=== PATIENT | male | born 1990 | race Caucasian/White ===

== ENCOUNTER 2020-09-01 14:04 | Emergency (ER) | payer OTHER ==
[2020-09-01 14:12] VITALS: BP 128/77; PULSE 62
--- NOTE | 2020-09-01 14:14 | EDM.PDOC ---
ED HPI GENERAL MEDICAL PROBLEM - General Chief Complaint: General Stated Complaint: SKIN COMPLAINT/LIGHTHEADED Time Seen by Provider: 09/01/20 14:27 Source of Information: Reports: Patient History Limitations: Reports: No Limitations - History of Present Illness INITIAL COMMENTS - FREE TEXT/NARRATIVE: 30-year-old male presents to the ED generally not feeling well. 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 He reports that he felt faint like he was going to pass out on 3 or 4 occasions today. Feels lightheaded and mildly dizzy. He has been having diarrhea stools on average 3 to 5/day for the last 3 days. No blood has been noticed. Appetite has been decreased. No nausea or vomiting. He denies any excessive alcohol use over the New Year's. Patient does appreciate some erythema off and on in his anterior thighs which is not really bothering him. Does not appreciate any fever chills cough or sputum production. No nasal congestion loss of sense of taste or smell. Currently he states that he is on antibiotic for a swelling in his right breast under the nipple. He has had this for approximately 2 to 3 months. Onset: Today Onset Date: 09/01/20 (Carrier repeatedly like he might faint today while at work standing on a work over rig working. I did sit down on 3 occasions that as he thought he was going to pass out. He has been having diarrhea stools for about 3 days on average 3-5 stools per day. Worse with eating.) Duration: Day(s):, Getting Worse, Intermittent Location: Reports: Generalized (Generalized sense of lightheadedness dizziness and like he might pass out.), Other (Patient has gynecomastia with a painful l ump gradually getting larger in his right breast over the last 2 to 3 months.) Quality: Reports: Other (Diarrhea stools x3 days loose watery and semiformed this morning with the first bowel movement. On average 3-5 bowel months per day. No associated fever chills or hematochezia.) Improves with: Reports: None Worsens with: Reports: None Context: Denies: Activity, Exercise, Lifting, Sick Contact, Trauma, Other Associated Symptoms: Reports: Loss of Appetite, Malaise, Syncope, Weakness, Other (Mild dizziness). Denies: No Other Symptoms, Confusion, Chest Pain, Cough, cough w sputum, Diaphoresis, Fever/Chills, Headaches, Nausea/Vomiting, Rash, Seizure, Shortness of Breath Treatments VENUE COORDINATOR: Reports: Other (see below) (None.) - Related Data Allergies Allergy/AdvReac Type Severity Reaction Status Date / Time No Known Allergies Allergy Verified 09/01/20 14:12 Home Meds: Home Meds Acetaminophen/HYDROcodone [[place] 325-5 MG] 1 - 2 tab PO Q6H PRN #40 tablet 04/30/16 [Rx] Cyclobenzaprine [Flexeril] 10 mg PO TID PRN #40 tablet 04/30/16 [Rx] Past Medical History Gastrointestinal History: Reports: Other (See Below) (Diarrhea stools with loose yellow stools x3 days 3 to 5/day.) Endocrine/Metabolic History: Reports: Other (See Below) (Patient has a painful mobile lump right breast. This is combined with gynecomastia. He states has been present for between 2 and 3 months. Seems to be gradually getting larger.) Social & Family History - Caffeine Use Caffeine Use: Reports: Energy Drinks Other Caffeine Use: drinks 2 daily - Recreational Drug Use Recreational Drug Use: No - Living Situation & Occupation Living situation: Reports: Single Occupation: Employed ED ROS GENERAL - Review of Systems Review Of Systems: See Below Constitutional: Reports: Malaise, Fatigue, Other (Recurrent of near syncope today. This was always well standing.). Denies: Fever, Chills HEENT: Reports: No Symptoms Respiratory: Reports: No Symptoms, Other (On examination of the right breast he does have a painful mobile mass approximately 2.5 cm x 1.2 cm under the right nipple. This is combined with gynecomastia. Concern reported by the patient is that it continues to slowly grow over the last 2 to 3 months.) Cardiovascular: Reports: No Symptoms Endocrine: Reports: Fatigue, Other (Painful lump right breast. Is been present for the last 2 to 3 months appears to be gradually getting larger.) GI/Abdominal: Reports: No Symptoms, Diarrhea (3-5 loose). Denies: Abdominal Pain, Anorexia, Black Stool, Bloody Stool, Constipation, Decreased Appetite, Difficulty Swallowing, Distension ( yellow stools per day for the last 3 days.), Flatus, Hematemesis, Hematochezia, Melena, Stool Incontinence, Vomiting, Other : Reports: No Symptoms Musculoskeletal: Reports: No Symptoms Skin: Reports: No Symptoms Neurological: Reports: Dizziness, Syncope, Weakness. Denies: Confusion, Headache, Numbness, Tingling (Only like he was going to faint on 2 or 3 occasions today.), Tremors, Trouble Speaking, Difficulty Walking, Change in Speech Psychiatric: Reports: No Symptoms Hematologic/Lymphatic: Reports: No Symptoms Immunologic: Reports: No Symptoms ED EXAM, GENERAL - Physical Exam Exam: See Below Exam Limited By: No Limitations General Appearance: Alert, WD/WN, No Apparent Distress, Other (Temperature is 36.2 with a heart rate of 62 and sinus respiratory of 16 O2 sats of 99% room air BP 09/26/1976. Orthostatic BPs were unremarkable.) Eye Exam: Bilateral Eye: Normal Inspection (No scleral icterus or blepharal pallor.), PERRL Ears: Normal TMs Throat/Mouth: Other Head: Atraumatic, Normocephalic (Tongue is slightly dry. Not coated) Neck: Normal Inspection, Supple, Non-Tender, Full Range of Motion. No: Carotid Bruit, Lymphadenopathy (L), Lymphadenopathy (R), Thyromegaly Respiratory/Chest: No Respiratory Distress, Lungs Clear, Normal Breath Sounds, No Accessory Muscle Use, Other (Examination of the right breast reveals a 2.5 cm x 1.2 cm mobile tender mass under the right nipple compatible with gynecomastia. The left side shows no such) Cardiovascular: Normal Peripheral Pulses, Regular Rate, Rhythm, No Edema, No Gallop, No Murmur, No Rub Peripheral Pulses: 3+: Carotid (L), Carotid (R), Posterior Tibial (L), Posterior Tibial (R), Dorsalis Pedis (L), Dorsalis Pedis (R) GI/Abdominal: Normal Bowel Sounds, Soft, Non-Tender, No Organomegaly, No Mass, Pelvis Stable Back Exam: Normal Inspection, Full Range of Motion. No: CVA Tenderness (L), CVA Tenderness (R) Extremities: Normal Inspection, Normal Range of Motion, Non-Tender, No Pedal Edema Neurological: Alert, Oriented, CN II-XII Intact, Normal Cognition Psychiatric: Normal Affect, Normal Mood Skin Exam: Warm, Dry, Intact, Normal Color, No Rash Course - Vital Signs Last Recorded V/S: Last Vital Signs Temp 36.2 C 09/01/20 14:09 Pulse 62 09/01/20 14:09 Resp 16 09/01/20 14:09 BP 128/77 09/01/20 14:09 Pulse Ox 99 09/01/20 14:09 Orthostatic Blood Pressure [ 111/76 Standing] Orthostatic Blood Pressure [ 122/74 Sitting] Orthostatic Blood Pressure [ 117/67 Supine] - Orders/Labs/Meds Orders: Active Orders 24 hr Category Date Time Status Orthostatic Vital Signs [RC] ASDIRECTED Care 09/01/20 14:13 Active PROLACTIN [REF] Stat Lab 09/01/20 14:40 Received TESTOSTERONE,FREE AND TOTAL [REF] Stat Lab 09/01/20 14:40 Received Dextrose 5%-Lactated Ringers 1,000 ml Med 09/01/20 14:30 Active IV ASDIRECTED Medication Orders Dextrose/Lactated Ringer's (Dextrose 5%-Lactated Ringers) 1,000 mls @ 999 mls/hr IV ASDIRECTED DIDI Last Admin: 09/01/20 14:44 Dose: 999 mls/hr Documented by: MEG Labs: Laboratory Tests 09/01/20 09/01/20 Range/Units 14:40 14:40 WBC 4.81 (4.23-9.07) K/mm3 RBC 4.38 L (4.63-6.08) M/mm3 Hgb 13.2 L (13.7-17.5) gm/dl Hct 38.4 L (40.1-51.0) % MCV 87.7 (79.0-92.2) fl MCH 30.1 (25.7-32.2) pg MCHC 34.4 (32.2-35.5) g/dl RDW Std Deviation 38.8 (35.1-43.9) fL Plt Count 273 (163-337) K/mm3 MPV 10.4 (9.4-12.3) fl Neut % (Auto) 44.3 (34.0-67.9) % Lymph % (Auto) 39.3 (21.8-53.1) % Meigs % (Auto) 11.2 (5.3-12.2) % Eos % (Auto) 4.4 (0.8-7.0) Baso % (Auto) 0.8 (0.1-1.2) % Neut # (Auto) 2.13 (1.78-5.38) K/mm3 Lymph # (Auto) 1.89 (1.32-3.57) K/mm3 Meigs # (Auto) 0.54 (0.30-0.82) K/mm3 Eos # (Auto) 0.21 (0.04-0.54) K/mm3 Baso # (Auto) 0.04 (0.01-0.08) K/mm3 Sodium 142 (136-145) mEq/L Potassium 3.8 (3.5-5.1) mEq/L Chloride 106 (98-107) mEq/L Carbon Dioxide 30 (21-32) mEq/L Anion Gap 9.8 (5-15) BUN 15 (7-18) mg/dL Creatinine 1.0 (0.7-1.3) mg/dL Est Cr Clr Drug Dosing 117.13 mL/min Estimated GFR (MDRD) > 60 (>60) mL/min BUN/Creatinine Ratio 15.0 (14-18) Glucose 91 (74-106) mg/dL Calcium 8.8 (8.5-10.1) mg/dL Magnesium 2.1 (1.8-2.4) mg/dl Total Bilirubin 0.6 (0.2-1.0) mg/dL AST 14 L (15-37) U/L ALT 24 (16-63) U/L Alkaline Phosphatase 101 (46-116) U/L C-Reactive Protein <0.2 (<1.0) mg/dL Total Protein 7.1 (6.4-8.2) g/dl Albumin 4.0 (3.4-5.0) g/dl Globulin 3.1 gm/dL Albumin/Globulin Ratio 1.3 (1-2) TSH 3rd Generation 0.521 (0.358-3.74) uIU/mL Meds: Medications Generic Name Dose Route Start Last Admin Trade Name Freq PRN Reason Stop Dose Admin Dextrose/Lactated Ringer's 1,000 mls @ 999 mls/hr 09/01/20 14:30 09/01/20 14:44 Dextrose 5%-Lactated Ringers IV 999 mls/hr ASDIRECTED DIDI Administration - Radiology Interpretation Free Text/Narrative:: 30-year-old male presents to the ED for evaluation of near syncopal Angie francisco today while at work. 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 States he felt faint on 3 occasions today and had to sit down for a period of time. He states he did have some food this morning. He has been having diarrhea for the last 3 days on average 3-5 loose watery stools per day. He states the first 1 this morning was semiformed but subsequently has been diarrhea. Denies nausea or vomiting. No fever chills no cough sputum production. The only other finding on exam was painful lump in the right breast which she reports has been present for the last 2 to 3 months i.e. gynecomastia. There is nothing in the left breast. He reports this mass has been slowly getting bigger over the last 3 months. He has not had a hormonal work-up. He denies taking any steroids. Orthostatic blood pressures are normal. He reports an intermittent red rash on his thighs for the last couple of days but it is gone at this point time. Is not itchy or sore. Plan IV will be D5 Ringer's lactate at open. Routine labs be done. I did also order a follicle-stimulating hormone, luteinizing hormone, serum prolactin level and testosterone both free and protein band. - Re-Assessments/Exams Free Text/Narrative Re-Assessment/Exam: 09/01/20 15:37 White count is normal at 4.81. The differential reveals 44% neutrophils and 39% lymphocytes. Hemoglobin is 13.2 with hematocrit of 38.4. Sodium 142 with a potassium of 3.8 . Chloride is 106 with a Bicarb of 30. Anion gap is 9.8 BUN is 15 with a creatinine of 1.0 and a GFR greater than 60. Glucose is 91 with a calcium of 8.8 magnesium is normal at 2.1. Liver function is normal. C-reactive protein less than 0.2. Total protein 7.1 with an albumin fraction of 4.0. TSH is 0.521 09/01/20 15:44 Patient advised of the normal lab test that I did. The hormone studies i.e. FSH, LH, prolactin and TSH will not be available. They will be sent to his primary care provider Veronique Addison. The fact that this gynecomastia area hurts is good news in terms that cancer does not hurt. Concern is that it is continued to grow due to uncontrolled hormone stimulation for a benign tumor. May require surgical referral if it continues to grow. The results of the above hormone studies will likely be available on Wednesday this next week as they are send outs. He will be going home from the ED to sleep. He is fit to return to return to work tomorrow. Departure - Departure Time of Disposition: 15:46 Disposition: Home, Self-Care 01 Condition: Fair Clinical Impression: Viral enteritis, Postural dizziness with near syncope, Gynecomastia, male - Discharge Information *PRESCRIPTION DRUG MONITORING PROGRAM REVIEWED*: Not Applicable *COPY OF PRESCRIPTION DRUG MONITORING REPORT IN PATIENT SAM: Not Applicable Instructions: Viral Gastroenteritis, Adult, Gynecomastia, Adult Referrals: Neema Addison NP [Primary Care Provider] - Forms: ED Department Discharge, ED Return to Work/School Form Additional Instructions: Evaluation in the emergency room today in regards to feeling faint on 2 or 3 occasions today while standing in the workplace with a feeling like you are going to pass out. History of diarrhea 3-5 loose stools per day for the last 3 days with semiformed first thing this morning. This suggests the diarrhea is slowly going to improve. It appears to be viral in cause. Lab test done through the ED reveal no abnormalities in terms that your bicarb, potassium and magnesium levels were all normal. You were given a liter of IV fluids to provide rehydration in the ED. Suggest trying to eat a regular meal for supper tonight. You should avoid foods such as milk products and no apple juice or grape juice until the stools are formed back up. Tentatively may return to work tomorrow. Note hormone studies done for your swollen right breast: Gynecomastia are send outs and I do not have the results. Results will be available usually about Wednesday this week. Suggest follow-up with Veronique Addison your primary care provider in this regard. The results will be sent to her from the lab once they are available. Sepsis Event Note (ED) - Evaluation Sepsis Screening Result: No Definite Risk - Focused Exam Vital Signs: Vital Signs Temp Pulse Resp BP Pulse Ox 09/01/20 14:09 36.2 C 62 16 128/77 99 - My Orders Last 24 Hours: My Active Orders 09/01/20 14:13 Orthostatic Vital Signs [RC] ASDIRECTED 09/01/20 14:30 Dextrose 5%-Lactated Ringers 1,000 ml IV ASDIRECTED 09/01/20 14:40 PROLACTIN [REF] Stat TESTOSTERONE,FREE AND TOTAL [REF] Stat - Assessment/Plan Last 24 Hours: My Active Orders 09/01/20 14:13 Orthostatic Vital Signs [RC] ASDIRECTED 09/01/20 14:30 Dextrose 5%-Lactated Ringers 1,000 ml IV ASDIRECTED 09/01/20 14:40 PROLACTIN [REF] Stat TESTOSTERONE,FREE AND TOTAL [REF] Stat
[2020-09-01] MEDS ORDERED: Dextrose 5%-Lactated Ringers 1,000 ML IV SCH (14:30)
== END 2020-09-01 16:25 | disposition home or self-care (01) ==
LOC: JD.ED 14:04
DX: A08.4 Viral intestinal infection, unspecified (principal); N62 Hypertrophy of breast; R55 Syncope and collapse
CPT/HCPCS: 36415; 80053; 83735; 84146; 84402; 84403; 84443; 85025; 86140; 99284; J7121

== ENCOUNTER 2021-03-01 20:49 | Emergency (ER) | payer OTHER ==
--- NOTE | 2021-03-01 21:20 | EDM.PDOC ---
ED HPI GENERAL MEDICAL PROBLEM - General Chief Complaint: Wound Recheck Stated Complaint: LT FINGER INJURY Time Seen by Provider: 03/01/21 21:00 Source of Information: Reports: Patient History Limitations: Reports: No Limitations Left Finger-Ring Pain Score (Numeric/FACES): 4 - Related Data Allergies Allergy/AdvReac Type Severity Reaction Status Date / Time No Known Allergies Allergy Verified 03/01/21 21:24 Home Meds: Home Meds Clindamycin HCl 300 mg PO Q6HR 03/01/21 [History] oxyCODONE 5 mg PO Q4HR PRN 03/01/21 [History] Past Medical History - Past Health History Medical/Surgical History: Denies Medical/Surgical History Gastrointestinal History: Reports: Other (See Below) (Diarrhea stools with loose yellow stools x3 days 3 to 5/day.) Endocrine/Metabolic History: Reports: Other (See Below) (Patient has a painful mobile lump right breast. This is combined with gynecomastia. He states has been present for between 2 and 3 months. Seems to be gradually getting larger.) Social & Family History - Caffeine Use Caffeine Use: Reports: Energy Drinks Other Caffeine Use: drinks 2 daily - Living Situation & Occupation Living situation: Reports: Single Occupation: Employed ED ROS GENERAL - Review of Systems Review Of Systems: Comprehensive ROS is negative, except as noted in HPI. ED EXAM, SKIN/RASH Exam: See Below Exam Limited By: No Limitations General Appearance: Alert, No Apparent Distress Head: Atraumatic Neck: Normal Inspection Respiratory/Chest: No Respiratory Distress GI/Abdominal: No Distention Neurological: Alert, Oriented Psychiatric: Normal Affect, Normal Mood Skin: Warm, Dry Location, Skin: Upper Extremity, Left Associated features: Tenderness, Swelling Comments: Wound is showing some granulation tissue along the lacerations which were not adequately sutured in my opinion. There is no sign of infection. Patient states swelling is not been increasing or decreasing. He feels it does look worse because he has been keeping the dressing on 24 hours a day and feels that the wound margins are not closing. Course - Vital Signs Text/Narrative:: I am encouraging patient leave the wound undressed for the majority of hours he is awake. He may put a dressing on when he goes to bed anytime he is doing activity where the wounds would get dirty. We are giving him 1 splint and some nonstick dressings at this time. He is to continue on clindamycin and follow-up with his PCP this Wednesday for to recheck. He may return to ER anytime if he feels he is doing worse. Light coat of antibiotic ointment twice a day. Last Recorded V/S: Last Vital Signs Temp 98.6 F 03/01/21 21:15 Pulse 56 L 03/01/21 21:15 Resp 18 03/01/21 21:15 BP 132/93 H 03/01/21 21:15 Pulse Ox 99 03/01/21 21:15 Departure - Departure Time of Disposition: 21:37 Disposition: Home, Self-Care 01 Condition: Fair Clinical Impression: Encounter for re-check of laceration wound - Discharge Information Instructions: How to Change Your Wound Dressing, [id number] Referrals: Neema Addison NP [Primary Care Provider] - Forms: ED Department Discharge Additional Instructions: Keep clean and dry as much as possible. Wound recheck with PCP this Wednesday. Return to ER anytime we feel you are doing worse. Light coat antibiotic ointment twice a day. Splint as needed. Sepsis Event Note (ED) - Focused Exam Vital Signs: Vital Signs Temp Pulse Resp BP Pulse Ox 03/01/21 21:15 98.6 F 56 L 18 132/93 H 99
[2021-03-01 21:24] VITALS: BP 132/93; PULSE 56
== END 2021-03-01 21:45 | disposition home or self-care (01) ==
LOC: JD.ED 20:49
DX: S61.219D Laceration without foreign body of unspecified finger without damage to nail, subsequent encounter (principal); Z48.01 Encounter for change or removal of surgical wound dressing
CPT/HCPCS: 99282